=== PATIENT | male | born 1955 | race Caucasian/White ===

== ENCOUNTER 2018-05-11 11:15 | Emergency (ER) | payer OTHER ==
[~2018-05-11] VITALS: Ht 177.8 cm; Wt 103.5 kg
[2018-05-11 11:17] VITALS: BP 154/97; PULSE 68; RESP 18; Ht 177.8 cm; Wt 103.5 kg
[2018-05-11] MEDS ORDERED: ONDANSETRON (ODT) 4 MG TAB ODT STA (11:56)
[2018-05-11] MEDS ORDERED: HYDR-4011 PO (11:58)
[2018-05-11] MEDS ORDERED: COLC0.6T6 PO (11:58)
[2018-05-11] MEDS ORDERED: HYDROCODONE/APAP (5/325) TAB PO ONE (12:00)
--- NOTE | 2018-05-11 12:44 | ERD ---
ER Documentation Chief Complaint Chief Complaint BILATERAL FOOT PAIN RADIATING UP TO ANKLE HPI 62-year-old male presenting with bilateral foot pain. Patient states he has a long history of gout in his normal presentation. He states he normally has bilateral foot pain when he has a gout inflammation. He states his last gouty inflammation was 1 month ago and this is how it was presented. He denies any fevers. He has taken ibuprofen with no alleviation of symptoms. Denies any recent falls. Denies other medical problems. NKDA. Surgical history denies. Social history denies ROS All systems reviewed and are negative except as per history of present illness. Medications Home Meds Active Scripts Colchicine* (Colcrys*) 0.6 Mg Tablet, 0.6 MG PO ONCE, #3 TAB Prov:GANESH OLIVAS PA-C 05/11/18 Hydrocodone/Acetaminophen (Mancos 5-325 Tablet) 1 Each Tablet, 1 TAB PO Q6H PRN for PAIN, #7 TAB Prov:GANESH OLIVAS PA-C 05/11/18 Allergies Allergies: Coded Allergies: No Known Allergy (Unverified , 05/11/18) PMhx/Soc Medical and Surgical Hx: pt denies Surgical Hx History of Surgery: No Anesthesia Reaction: No Hx Neurological Disorder: No Hx Respiratory Disorders: Yes (COPD) Hx Cardiac Disorders: Yes Hx Psychiatric Problems: Yes (DEPRESSION) Hx Miscellaneous Medical Probl: Yes (GOUT) Hx Alcohol Use: No Hx Substance Use: No Hx Tobacco Use: Yes Smoking Status: Current every day smoker FmHx Family History: No diabetes, No coronary disease, No other Physical Exam Vitals Vital Signs Date Temp Pulse Resp B/P (MAP) Pulse Ox O2 O2 Flow FiO2 Time Delivery Rate 05/11/18 100.2 68 18 154/97 97 11:17 (116) Physical Exam GENERAL: The patient is well-appearing, well-nourished, in no acute distress CHEST: Clear to auscultation bilaterally. There are no rales, wheezes or rhonchi. HEART: Regular rate and rhythm. No murmurs, clicks, rubs or gallops. No S3 or S4. EXTREMITIES: Tender about the lateral feet. No obvious swelling. No deformities. Pulses intact and compartments soft. NEUROLOGIC: Alert and oriented. Cranial nerves II through XII intact. Motor strength in all 4 extremities with 5 out of 5 strength. Sensation grossly intact. Normal speech and gait. Babinski negative. DTR 2+ throughout. SKIN: No obvious swelling or erythema noted to the skin. No fluctuance. Results 24 hrs Current Medications Medications Dose Sig/Amadou Start Time Status Last (Trade) Ordered Route PRN Stop Time Admin Dose Reason Admin 1 tab ONCE ONCE 05/11/18 DC 05/11/18 Acetaminophen PO 12:00 12:07 / 05/11/18 12:01 Hydrocodone Bitart (Mancos (5/325)) Ondansetron 4 mg ONCE STAT 05/11/18 DC 05/11/18 HCl (Zofran ODT 11:56 12:07 Odt) 05/11/18 11:58 Procedures/MDM ER course: Temperature rechecked and patient's temperature is 98.7 with no medication use. MDM: 62-year-old male presenting with bilateral foot pain. Patient states that the same as his normal gouty inflammation. I do not feel that there is concern for infectious etiology or bony injury. Patient will be discharged with supportive medications and told to follow-up with primary care within 1-2 days for close evaluation. Patient is told symptoms change or worsen to immediately return to the ER. All questions answered at discharge Departure Diagnosis: Primary Impression: Gout Condition: Stable Patient Instructions: Gouty Arthritis Referrals: [facility] YOU HAVE RECEIVED A MEDICAL SCREENING EXAM AND THE RESULTS INDICATE THAT YOU DO NOT HAVE A CONDITION THAT REQUIRES URGENT TREATMENT IN THE EMERGENCY DEPARTMENT. FURTHER EVALUATION AND TREATMENT OF YOUR CONDITION CAN WAIT UNTIL YOU ARE SEEN IN YOUR DOCTORS OFFICE WITHIN THE NEXT 1-2 DAYS. IT IS YOUR RESPONSIBILITY TO MAKE AN APPOINTMENT FOR FOLOW-UP CARE. IF YOU HAVE A PRIMARY DOCTOR --you should call your primary doctor and schedule an appointment IF YOU DO NOT HAVE A PRIMARY DOCTOR YOU CAN CALL OUR PHYSICIAN REFERRAL HOTLINE AT IF YOU CAN NOT AFFORD TO SEE A PHYSICIAN YOU CAN CHOSE FROM THE FOLLOWING THE [facility] [address] [facility] [address] [facility] [address] [facility] [address] [facility]. [facility] [address] [facility]. [facility] [address] Additional Instructions: FOLLOW UP WITH YOUR PRIMARY CARE PHYSICIAN TOMORROW.Return to this facility if you are not improving as expected. GANESH OLIVAS PA-C May 11, 2018 12:44
== END 2018-05-11 12:42 | disposition home or self-care (01) ==
LOC: FTE 11:15
DX: M10.9 Gout, unspecified (principal); J44.9 Chronic obstructive pulmonary disease, unspecified; F17.210 Nicotine dependence, cigarettes, uncomplicated
CPT/HCPCS: 99283